=== PATIENT | male | born 2000 | race American Indian/Alaskan Native ===

== ENCOUNTER 2020-07-16 12:11 | Emergency (ER) | payer BC, OTHER ==
[2020-07-16 13:36] VITALS: BP 137/62
--- NOTE | 2020-07-16 14:10 | XRay Report ---
RIGHT ANKLE 3 VIEWS INDICATION / CLINICAL INFORMATION: MAIN. COMPARISON: None available. FINDINGS: Slight soft tissue swelling over the lateral malleolus. No appreciable fracture or other significant abnormality. Signer Name: Luís Tejada MD Signed: 07/16/2020 2:06 PM Workstation Name: [id number]
--- NOTE | 2020-07-16 14:46 | Emergency Department Report ---
ED Lower Extremity HPI - General Chief Complaint: Extremity Injury, Lower Stated Complaint: RT ANKLE SPRAIN Time Seen by Provider: 07/16/20 13:35 Source: patient Mode of arrival: Ambulatory Limitations: Physical Limitation - History of Present Illness Initial Comments: This is a 19-year-old male nontoxic, well nourished in appearance, no acute signs of distress presents to the ED with c/o of right ankle pain 1 day. Patient stated that he was wrestling and developed pains. Patient denies any other injuries or trauma. Patient denies any numbness, tingling, fever, chills, nausea, vomiting, chest pain, shortness of breath, headache, stiff neck. Patient denies any joint swelling or joint redness. Patient denies decreased range of motion. Patient stated has decreased gait due to pain. Patient denies any allergies. MD Complaint: foot injury -: days(s) Injury: Ankle: Left, Foot: Left Severity: mild Severity scale (0 -10): 8 Improves With: immobilization Worsens With: weight bearing, movement, palpation Associated Symptoms: swelling, able to partially bear weight. denies: snap/pop sensation, numbness, tingling, unable to bear weight - Related Data Previous Rx's Medication Instructions Recorded Last Taken Type Naproxen 500 mg PO Q12H PRN #12 tablet 07/16/20 Unknown Rx Allergies Allergy/AdvReac Type Severity Reaction Status Date / Time No Known Allergies Allergy Verified 07/16/20 13:35 ED Review of Systems ROS: Stated complaint: RT ANKLE SPRAIN Other details as noted in HPI Comment: All other systems reviewed and negative Constitutional: denies: chills, fever Eyes: denies: eye pain, eye discharge, vision change ENT: denies: ear pain, throat pain Respiratory: denies: cough, shortness of breath, wheezing Cardiovascular: denies: chest pain, palpitations Endocrine: no symptoms reported Gastrointestinal: denies: abdominal pain, nausea, diarrhea Genitourinary: denies: urgency, dysuria Musculoskeletal: denies: back pain, joint swelling, arthralgia Skin: denies: rash, lesions Neurological: denies: headache, weakness, paresthesias Psychiatric: denies: anxiety, depression Hematological/Lymphatic: denies: easy bleeding, easy bruising ED Past Medical Hx - Past Medical History Previous Medical History?: No - Surgical History Past Surgical History?: Yes Additional Surgical History: bilateral ear sx as baby - Social History Smoking Status: Never Smoker Substance Use Type: None - Medications Home Medications: Home Medications Medication Instructions Recorded Confirmed Last Taken Type Naproxen 500 mg PO Q12H PRN #12 tablet 07/16/20 Unknown Rx ED Physical Exam - General Limitations: Physical Limitation General appearance: alert, in no apparent distress - Head Head exam: Present: atraumatic, normocephalic - Eye Eye exam: Present: normal appearance - Neck Neck exam: Present: normal inspection, full ROM - Respiratory Respiratory exam: Absent: respiratory distress - Cardiovascular Cardiovascular Exam: Present: regular rate - Extremities Exam Extremities exam: Present: normal inspection, full ROM, tenderness, normal capillary refill. Absent: joint swelling, calf tenderness - Expanded Lower Extremity Exam Right Hip exam: Present: normal inspection, full ROM. Absent: tenderness, swelling Upper Leg exam: Present: normal inspection, full ROM. Absent: tenderness, swelling Knee exam: Present: normal inspection, full ROM. Absent: tenderness, swelling Lower Leg exam: Present: normal inspection, full ROM. Absent: tenderness, swelling Ankle exam: Present: normal inspection, full ROM, tenderness, swelling. Absent: abrasion, laceration, ecchymosis, deformity, crepidus, dislocation, erythema, anterior draw sign Foot/Toe exam: Present: normal inspection, full ROM. Absent: tenderness, swelling Neuro vascular tendon exam: Present: no vascular compromise Gait: Positive: observed and limited by pain - Back Exam Back exam: Present: normal inspection, full ROM. Absent: tenderness, CVA tenderness (R), CVA tenderness (L), muscle spasm, paraspinal tenderness, vertebral tenderness, rash noted - Neurological Exam Neurological exam: Present: alert, oriented X3, normal gait - Psychiatric Psychiatric exam: Present: normal affect, normal mood - Skin Skin exam: Present: warm, dry, intact, normal color. Absent: rash ED Course Vital Signs 07/16/20 13:33 Temperature 98.8 F Pulse Rate 82 Respiratory 18 Rate Blood Pressure 137/62 O2 Sat by Pulse 100 Oximetry - Reevaluation(s) Reevaluation #1: 07/16/20 14:47 Patient is speaking in full sentences with no signs of distress noted. ED Lower Extremity MDM - Radiology Data [facility], [place] [address] [place] [address] XRay Report Signed Patient: SEAN HOLMAN MR#: [id number] : 2000 Acct:[id number] Age/Sex: 19 / M A DM Date: 07/16/20 Loc: ED Attending Dr: Ordering Physician: DEBBIE THEODORE NP Date of Service: 07/16/20 Procedure(s): XR ankle 3+V RT Accession Number(s): [id number] cc: DEBBIE THEODORE NP Fluoro Time In Minutes: RIGHT ANKLE 3 VIEWS INDICATION / CLINICAL INFORMATION: MAIN. COMPARISON: None available. FINDINGS: Slight soft tissue swelling over the lateral malleolus. No appreciable fracture or other significant abnormality. Signer Name: Luís Tejada MD Signed: 07/16/2020 2:06 PM Workstation Name: [id number] Transcribed By: TM Dictated By: Luís Tejada MD Electronically Authenticated By: Luís Tejada MD Signed Date/Time: 07/16/201405 DD/ 04 TD/TT: - Medical Decision Making This is a 19-year-old male that presents with left ankle sprain. Patient is stable and was examined by me. I referred patient to an orthopedic doctor for further evaluation for possible MRI. X-ray has been obtained and dictated by the radiologist. Patient is notified of the x-ray report with noted by the patient. Patient does have normal gait with pain and no joint swelling. No ecchymosis. no joint redness or swelling. Not warm to touch. No signs of cellulites present. Patient received ankle stirrup and crutches and was educated by RN how to use crutches. Patient was instructed to RICE therapy. Patient is discharged with Motrin. At time of discharge, the patient does not seem toxic or ill in appearance. No acute signs of distress noted. Patient agrees to discharge treatment plan of care. No further questions noted by the patient. Critical care attestation.: If time is entered above; I have spent that time in minutes in the direct care of this critically ill patient, excluding procedure time. ED Disposition Clinical Impression: Moderate left ankle sprain Qualifiers: Encounter type: initial encounter Qualified Code(s): S93.402A - Sprain of unspecified ligament of left ankle, initial encounter Disposition: DC-01 TO HOME OR SELFCARE Is pt being admited?: No Does the pt Need Aspirin: No Condition: Stable Instructions: Ankle Sprain, RICE Therapy for Routine Care of Injuries, [id number], Crutch Use, Adult, [id number] Additional Instructions: Follow-up with a orthopedic doctor in 3-5 days or if symptoms worsen and continue return to emergency room as soon as possible. No physical activity that extremity until cleared by orthopedic doctor Prescriptions: Naproxen 500 mg PO Q12H PRN #12 tablet PRN Reason: Pain , Severe (7-10) Referrals: PRIMARY CARE, [Primary Care Provider] - 3-5 Days ANGELITO BESS MD [Staff Physician] - 3-5 Days Forms: Work/School Release Form(ED) Time of Disposition: 14:48
== END 2020-07-16 15:17 | disposition home or self-care (01) ==
LOC: ED 12:11
DX: S93.401A Sprain of unspecified ligament of right ankle, initial encounter (principal); Z98.890 Other specified postprocedural states; Z79.899 Other long term (current) drug therapy; X58.XXXA Exposure to other specified factors, initial encounter; Y93.89 Activity, other specified; Y92.89 Other specified places as the place of occurrence of the external cause; Y99.8 Other external cause status